=== PATIENT | female | born 1990 | race Caucasian/White ===

== ENCOUNTER 2016-12-17 19:20 | Emergency (ER) | payer BC, OTHER ==
[2016-12-17] MEDS ORDERED: Gentamicin 0.3% Ophth Soln 5 ML Bottle ONE (19:42)
[2016-12-17 19:55] VITALS: BP 107/78
[2016-12-17] MEDS ORDERED: Gentamicin 0.3% Ophth Soln 5 ML Bottle EYERT SCH (21:00)
--- NOTE | 2016-12-18 02:33 | ER ---
DATE SEEN: 12/17/2016 TIME SEEN: The patient was seen at 2000 hours. HISTORY OF PRESENT ILLNESS: This 26-year-old single 1, para 1-0-0-1 mother works full-time at [employer], noted onset yesterday of itchy right eye with moderate discharge. She denies compromised vision. Denies headache. She has cough with upper respiratory and lower respiratory infection symptoms. ALLERGIES: Sulfa. PAST MEDICAL HISTORY: No diabetes, heart disease, high blood pressure, asthma, or other serious illness. REVIEW OF SYSTEMS: Negative. PHYSICAL EXAMINATION: VITAL SIGNS: Blood pressure 107/78, heart rate 80, respirations 20, oxygen saturation 100%, and temperature is 37 degrees centigrade. GENERAL: Alert woman, mild distress. HEENT: Mild injection of the sclera. No discharge noted in the eye. EOMs normal. Ophthalmoscopic examination the retina is normal. Optic cup-to-disk normal. No ante-tragal adenopathy. No cervical adenopathy. NECK: Supple. LUNGS: Clear. HEART: Without murmur. ABDOMEN: Negative. LABORATORY DATA: Rapid strep was obtained because she had mild sore throat. Pharynx has no erythema. Rapid strep is negative. ASSESSMENT: Conjunctivitis, rule out bacterial versus viral. PLAN: Treat with gentamicin ophthalmic drops 2 drops 4 times a day at least 5 days, if it is not improved in 3 to 5 days, see a doctor. /[id number] ROXI/ZACK
== END 2016-12-17 20:10 | disposition home or self-care (01) ==
LOC: FB.ED 19:20
DX: H10.9 Unspecified conjunctivitis (principal); Z88.2 Allergy status to sulfonamides
CPT/HCPCS: 87081; 87430; 99283; A9270